=== PATIENT | male | born 1995 | race American Indian/Alaskan Native ===

== ENCOUNTER 2019-04-02 11:04 | Emergency (ER) | payer OTHER ==
[2019-04-02 11:10] VITALS: BP 125/63
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
--- NOTE | 2019-04-02 11:40 | XRay Report ---
LUMBOSACRAL SPINE, 3 VIEWS INDICATION: low back pain. COMPARISON: None. IMPRESSION: There is mild levocurvature to the lumbar spine which could be positional in nature. No significant discogenic DJD or facet arthropathy. The sacrum and SI joints are within normal limits. No acute osseous or soft tissue abnormality. Signer Name: Royal Brown Jr, MD Signed: 04/02/2019 11:36 AM Workstation Name: [id number]
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
[2019-04-02] MEDS ORDERED: IBUPROFEN PO ONE (12:19)
== END 2019-04-02 13:29 | disposition home or self-care (01) ==
LOC: ED 11:04
DX: S16.1XXA Strain of muscle, fascia and tendon at neck level, initial encounter (principal); F17.200 Nicotine dependence, unspecified, uncomplicated; Z79.899 Other long term (current) drug therapy; V89.2XXA Person injured in unspecified motor-vehicle accident, traffic, initial encounter; Y93.89 Activity, other specified; Y92.488 Other paved roadways as the place of occurrence of the external cause; Y99.8 Other external cause status
CPT/HCPCS: 72100; 99283

== ENCOUNTER 2019-07-01 09:47 | Emergency (ER) | payer SELFPAY ==
--- NOTE | 2019-07-01 12:02 | XRay Report ---
CHEST PA AND LATERAL VIEWS INDICATION: cough. COMPARISON: None. FINDINGS: Support devices: None. Heart: Within normal limits. Lungs/Pleura: No acute pulmonary or pleural findings. IMPRESSION: 1. No significant abnormality. Signer Name: Luis Israel MD Signed: 07/01/2019 11:57 AM Workstation Name: [id number]
[2019-07-01 12:03] VITALS: BP 119/93
[2019-07-01 12:03] LABS: Basophils % (Auto) 0.4 % (0.0-1.8); Eosinophils # (Auto) 0.1 K/mm3 (0.0-0.4); Eosinophils % (Auto) 0.9 % (0.0-4.3); Hematocrit 44.9 % (35.5-45.6); Hemoglobin 15.3 gm/dl (11.8-15.2); Lymphocytes # (Auto) 1.6 K/mm3 (1.2-5.4); Lymphocytes % (Auto) 17.4 % (13.4-35.0); Mean Corpuscular HGB Conc 34 % (32-34); Mean Corpuscular Volume 97 fl (84-94); Monocytes # (Auto) 0.9 K/mm3 (0.0-0.8); Monocytes % (Auto) 9.4 % (0.0-7.3); Platelet Count 211 K/mm3 (140-440); Red Blood Count 4.62 M/mm3 (3.65-5.03); Red Cell Distribution Width 13.7 % (13.2-15.2)
[2019-07-01 12:26] LABS: Alanine Aminotransferase 18 units/L (7-56); Albumin 4.2 g/dL (3.9-5); BUN/Creatinine Ratio 11; Blood Urea Nitrogen 12 mg/dL (9-20); Calcium 9.5 mg/dL (8.4-10.2); Hemolysis Index 7
[2019-07-01] MEDS ORDERED: IBUPROFEN 800 MG TAB PO ONE (12:36)
[2019-07-01] MEDS ORDERED: ALBUTEROL 2.5 MG/3 ML NEBU IH ONE (12:36)
[2019-07-01] MEDS ORDERED: predniSONE 20 MG TAB PO ONE (12:36)
[2019-07-01] MEDS ORDERED: levoFLOXacin 500 MG TAB PO ONE (12:37)
--- NOTE | 2019-07-01 12:37 | Emergency Department Report ---
- General Chief Complaint: Upper Respiratory Infection Stated Complaint: COUGHING BLOOD Time Seen by Provider: 07/01/19 12:36 Source: patient Mode of arrival: Ambulatory Limitations: No Limitations - History of Present Illness Initial Comments: 23 yo AA male comes to er with cough and dark secretions. no fever or chills. otherwise healthy. no myalgia. ambulatory and non toxic on exam. Complaint: cough -: Gradual, days(s) Severity: moderate Improves With: nothing Worsens With: nothing Associated Symptoms: denies other symptoms, cough Treatments Prior to Arrival: none - Related Data Previous Rx's Medication Instructions Recorded Last Taken Type Albuterol INH(or & Nicu Only) 2 puff IH QID PRN #1 inhalation 07/01/19 Unknown Rx [ProAir HFA Inhaler] Azithromycin [Zithromax Z-PARK] 250 mg PO DAILY #6 tablet 07/01/19 Unknown Rx Benzonatate [Tessalon Perles] 100 mg PO Q12H PRN #20 capsule 07/01/19 Unknown Rx Cetirizine HCl [ZyrTEC] 10 mg PO DAILY #30 capsule 07/01/19 Unknown Rx Fluticasone [Flonase] 1 spray NS QDAY #1 bottle 07/01/19 Unknown Rx predniSONE [Deltasone] 20 mg PO DAILY #5 tablet 07/01/19 Unknown Rx Allergies Allergy/AdvReac Type Severity Reaction Status Date / Time No Known Allergies Allergy Unverified 04/02/19 11:06 ED Review of Systems ROS: Stated complaint: COUGHING BLOOD Other details as noted in HPI Comment: All other systems reviewed and negative ED Past Medical Hx - Past Medical History Previous Medical History?: No - Surgical History Past Surgical History?: No - Family History Family history: no significant - Social History Smoking Status: Current Every Day Smoker Substance Use Type: None - Medications Home Medications: Home Medications Medication Instructions Recorded Confirmed Last Taken Type Albuterol INH(or & Nicu Only) 2 puff IH QID PRN #1 inhalation 07/01/19 Unknown Rx [ProAir HFA Inhaler] Azithromycin [Zithromax Z-PARK] 250 mg PO DAILY #6 tablet 07/01/19 Unknown Rx Benzonatate [Tessalon Perles] 100 mg PO Q12H PRN #20 capsule 07/01/19 Unknown Rx Cetirizine HCl [ZyrTEC] 10 mg PO DAILY #30 capsule 07/01/19 Unknown Rx Fluticasone [Flonase] 1 spray NS QDAY #1 bottle 07/01/19 Unknown Rx predniSONE [Deltasone] 20 mg PO DAILY #5 tablet 07/01/19 Unknown Rx ED Physical Exam - General Limitations: No Limitations General appearance: alert, in no apparent distress - Head Head exam: Present: atraumatic, normocephalic - Eye Eye exam: Present: normal appearance - ENT ENT exam: Present: mucous membranes moist - Neck Neck exam: Present: normal inspection - Respiratory Respiratory exam: Present: normal lung sounds bilaterally, wheezes. Absent: respiratory distress - Cardiovascular Cardiovascular Exam: Present: regular rate, normal rhythm. Absent: systolic murmur, diastolic murmur, rubs, gallop - GI/Abdominal GI/Abdominal exam: Present: soft, normal bowel sounds - Rectal Rectal exam: Present: deferred - Extremities Exam Extremities exam: Present: normal inspection - Back Exam Back exam: Present: normal inspection - Neurological Exam Neurological exam: Present: alert, oriented X3 - Psychiatric Psychiatric exam: Present: normal affect, normal mood - Skin Skin exam: Present: warm, dry, intact, normal color. Absent: rash ED Course Vital Signs 07/01/19 07/01/19 10:14 12:32 Temperature 98.6 F Pulse Rate 65 Respiratory 18 17 Rate Blood Pressure 119/93 [Left] O2 Sat by Pulse 100 Oximetry ED Medical Decision Making - Lab Data Result diagrams: 07/01/19 11:48 07/01/19 11:48 - Radiology Data Radiology results: report reviewed, image reviewed - Medical Decision Making Lab Results 07/01/19 07/01/19 Range/Units 11:48 11:48 WBC 9.4 (4.5-11.0) K/mm3 RBC 4.62 (3.65-5.03) M/mm3 Hgb 15.3 H (11.8-15.2) gm/dl Hct 44.9 (35.5-45.6) % MCV 97 H (84-94) fl MCH 33 H (28-32) pg MCHC 34 (32-34) % RDW 13.7 (13.2-15.2) % Plt Count 211 (140-440) K/mm3 Lymph % (Auto) 17.4 (13.4-35.0) % Sullivan % (Auto) 9.4 H (0.0-7.3) % Eos % (Auto) 0.9 (0.0-4.3) % Baso % (Auto) 0.4 (0.0-1.8) % Lymph # 1.6 (1.2-5.4) K/mm3 Sullivan # 0.9 H (0.0-0.8) K/mm3 Eos # 0.1 (0.0-0.4) K/mm3 Baso # 0.0 (0.0-0.1) K/mm3 Seg Neutrophils % 71.9 H (40.0-70.0) % Seg Neutrophils # 6.8 (1.8-7.7) K/mm3 Sodium 141 (137-145) mmol/L Potassium 4.0 (3.6-5.0) mmol/L Chloride 102.8 (98-107) mmol/L Carbon Dioxide 25 (22-30) mmol/L Anion Gap 17 mmol/L BUN 12 (9-20) mg/dL Creatinine 1.1 (0.8-1.5) mg/dL Estimated GFR > 60 ml/min BUN/Creatinine Ratio 11 % Glucose 87 (75-100) mg/dL Calcium 9.5 (8.4-10.2) mg/dL Total Bilirubin 0.60 (0.1-1.2) mg/dL AST 26 (5-40) units/L ALT 18 (7-56) units/L Alkaline Phosphatase 93 (35-129) units/L Total Protein 7.4 (6.3-8.2) g/dL Albumin 4.2 (3.9-5) g/dL Albumin/Globulin Ratio 1.3 % Vital Signs 07/01/19 07/01/19 10:14 12:32 Temperature 98.6 F Pulse Rate 65 Respiratory 18 17 Rate Blood Pressure 119/93 [Left] O2 Sat by Pulse 100 Oximetry xray noted labs noted medicated in er vss nad no cp no sob otherwise healthy dc home with dc plan of care and pcp followup - Differential Diagnosis uri ro pna Critical care attestation.: If time is entered above; I have spent that time in minutes in the direct care of this critically ill patient, excluding procedure time. ED Disposition Clinical Impression: URTI (acute upper respiratory infection), Bronchitis Disposition: DC-01 TO HOME OR SELFCARE Is pt being admited?: No Does the pt Need Aspirin: No Condition: Stable Instructions: Acute Bronchitis (ED), Chronic Bronchitis (ED) Additional Instructions: hydrate well with water meds as ordered today diet and activity as tolerated motrin or tylenol for pain or fever follow up with pcp in 48 h for recheck referral below Prescriptions: predniSONE [Deltasone] 20 mg PO DAILY #5 tablet Fluticasone [Flonase] 1 spray NS QDAY #1 bottle Albuterol INH(or & Nicu Only) [ProAir HFA Inhaler] 2 puff IH QID PRN #1 inhalation PRN Reason: Shortness Of Breath Benzonatate [Tessalon Perles] 100 mg PO Q12H PRN #20 capsule PRN Reason: Cough Azithromycin [Zithromax Z-PARK] 250 mg PO DAILY #6 tablet Cetirizine HCl [ZyrTEC] 10 mg PO DAILY #30 capsule Referrals: GIANCARLO VILLALOBOS MD [Staff Physician] - 3-5 Days Time of Disposition: 12:43
== END 2019-07-01 13:29 | disposition home or self-care (01) ==
LOC: ED 09:47
DX: J06.9 Acute upper respiratory infection, unspecified (principal); J40 Bronchitis, not specified as acute or chronic; F17.200 Nicotine dependence, unspecified, uncomplicated; Z79.899 Other long term (current) drug therapy
CPT/HCPCS: 36415; 71046; 80053; 85025; 94640; 99284; J7512; 94644

== ENCOUNTER 2020-02-16 11:29 | Emergency (ER) | payer OTHER ==
[2020-02-16 11:55] VITALS: BP 108/53
[2020-02-16] MEDS ORDERED: BALANCED SALT IRRIG 1 DROPS, TETRACAINE 0.5% 1 DROPS, FLUORESCEIN 1 MG TP ONE (13:19)
--- NOTE | 2020-02-16 13:21 | Event Note ---
ED Screening Note Date of service: 02/16/20 Time: 13:19 ED Screening Note: 24-year-old male presents with left eye pain and swelling to the eye feeling like there is a foreign object in the that started yesterday. Patient is a contact lens user This initial assessment/diagnostic orders/clinical plan/treatment(s) is/are subject to change based on patients health status, clinical progression and re- assessment by fellow clinical providers in the ED. Further treatment and workup at subsequent clinical providers discretion. Patient/guardian urged not to elope from the ED as their condition may be serious if not clinically assessed and managed. Initial orders include: Eye kit, irrigation Left eye tenderness to palpation
--- NOTE | 2020-02-16 15:07 | Emergency Department Report ---
ED Eye Problem HPI - General Chief complaint: Eye Problems Stated complaint: HEADACHE/EYE PAIN Time Seen by Provider: 02/16/20 14:55 Source: patient Mode of arrival: Ambulatory Limitations: No Limitations - History of Present Illness Initial comments: Patient is 24 years old male with no significant past medical history. Patient presented with left eye redness and pain since yesterday. Stated this is associated with watery discharge. Patient denied any fever or headache. Patient stated that he is wearing contact lens. Patient denied any eye injury. MD chief complaint: eye pain, eye redness -: Last night Onset Description: gradual Location: left eye If Injury: none Eye Symptoms: burning, redness, pain Severity: moderate Severity scale (0 -10): 4 If Pain, Quality: throbbing Context: recent uri Associated Symptoms: none Treatments Prior to Arrival: none - Related Data Patient Tetanus UTD: Yes Previous Rx's Medication Instructions Recorded Last Taken Type Albuterol Mdi (or & Nicu Only) 2 puff IH QID PRN #1 inhalation 07/01/19 Unknown Rx [ProAir HFA Inhaler] Azithromycin [Zithromax Z-PARK] 250 mg PO DAILY #6 tablet 07/01/19 Unknown Rx Benzonatate [Tessalon Perles] 100 mg PO Q12H PRN #20 capsule 07/01/19 Unknown Rx Cetirizine HCl [ZyrTEC] 10 mg PO DAILY #30 capsule 07/01/19 Unknown Rx Fluticasone [Flonase] 1 spray NS QDAY #1 bottle 07/01/19 Unknown Rx predniSONE [Deltasone] 20 mg PO DAILY #5 tablet 07/01/19 Unknown Rx Ondansetron [Zofran Odt] 4 mg PO Q8HR PRN #14 tab.rapdis 02/16/20 Unknown Rx Polymyxin B Sulf/Trimethoprim 2 drop OP TID 7 Days #1 bottle 02/16/20 Unknown Rx [Polytrim Eye Drops] traMADoL [Ultram 50 MG tab] 50 mg PO Q4HR PRN #14 tablet 02/16/20 Unknown Rx Allergies Allergy/AdvReac Type Severity Reaction Status Date / Time No Known Allergies Allergy Verified 02/16/20 11:52 ED Review of Systems ROS: Stated complaint: HEADACHE/EYE PAIN Other details as noted in HPI Comment: All other systems reviewed and negative Constitutional: denies: chills, fever Respiratory: denies: cough, shortness of breath, SOB with exertion, SOB at rest, wheezing Cardiovascular: denies: chest pain, palpitations, dyspnea on exertion Gastrointestinal: denies: abdominal pain, nausea, vomiting, diarrhea, constipation, hematemesis, hematochezia Musculoskeletal: denies: back pain Neurological: denies: headache, weakness, numbness, paresthesias, confusion, abnormal gait ED Past Medical Hx - Past Medical History Previous Medical History?: No Hx Tuberculosis: No - Surgical History Past Surgical History?: No - Social History Smoking Status: Never Smoker Substance Use Type: None - Medications Home Medications: Home Medications Medication Instructions Recorded Confirmed Last Taken Type Albuterol Mdi (or & Nicu Only) 2 puff IH QID PRN #1 inhalation 07/01/19 Unknown Rx [ProAir HFA Inhaler] Azithromycin [Zithromax Z-PARK] 250 mg PO DAILY #6 tablet 07/01/19 Unknown Rx Benzonatate [Tessalon Perles] 100 mg PO Q12H PRN #20 capsule 07/01/19 Unknown Rx Cetirizine HCl [ZyrTEC] 10 mg PO DAILY #30 capsule 07/01/19 Unknown Rx Fluticasone [Flonase] 1 spray NS QDAY #1 bottle 07/01/19 Unknown Rx predniSONE [Deltasone] 20 mg PO DAILY #5 tablet 07/01/19 Unknown Rx Ondansetron [Zofran Odt] 4 mg PO Q8HR PRN #14 tab.rapdis 02/16/20 Unknown Rx Polymyxin B Sulf/Trimethoprim 2 drop OP TID 7 Days #1 bottle 02/16/20 Unknown Rx [Polytrim Eye Drops] traMADoL [Ultram 50 MG tab] 50 mg PO Q4HR PRN #14 tablet 02/16/20 Unknown Rx ED Physical Exam - General Limitations: No Limitations General appearance: alert, in no apparent distress - Head Head exam: Present: atraumatic, normocephalic, normal inspection - Eye Eye exam: Present: PERRL, EOMI, conjunctival injection. Absent: nystagmus, periorbital swelling, periorbital tenderness Pupils: Present: normal accommodation - ENT ENT exam: Present: normal exam, normal orophraynx, mucous membranes moist - Neck Neck exam: Present: normal inspection, full ROM. Absent: tenderness, meningismu s - Respiratory Respiratory exam: Present: normal lung sounds bilaterally - Cardiovascular Cardiovascular Exam: Present: regular rate, normal rhythm, normal heart sounds - GI/Abdominal GI/Abdominal exam: Present: soft, normal bowel sounds. Absent: distended, tenderness, guarding, rebound, rigid, organomegaly, mass, bruit, pulsatile mass, hernia - Extremities Exam Extremities exam: Present: normal inspection, full ROM, normal capillary refill. Absent: tenderness - Neurological Exam Neurological exam: Present: alert, oriented X3, CN II-XII intact, normal gait, reflexes normal. Absent: motor sensory deficit - Psychiatric Psychiatric exam: Present: normal mood - Skin Skin exam: Present: warm, intact, normal color ED Course Vital Signs 02/16/20 11:54 Temperature 97.8 F Pulse Rate 65 Respiratory 16 Rate Blood Pressure 108/53 O2 Sat by Pulse 100 Oximetry - Eye Procedure Alcaine Drops Administered: Yes Cyclogel 2 Drops Administered: left eye Progress: Left eye irrigated with 5 mm of normal saline and tetracaine applied. I examined with ultraviolet and the test showed no evidence of corneal abrasion or injury. ED Medical Decision Making - Medical Decision Making Patient is 24 years old male with no significant past medical history. Patient presented with left eye redness and pain since yesterday. Stated this is associated with watery discharge. Patient denied any fever or headache. Patient stated that he is wearing contact lens. Patient denied any eye injury Eye exam performed using Parrish lamp showed no corneal uptake and no evidence of corneal injury. Patient given prescription for Polytrim and advised to follow-up with concrete mixing plant laborer in the next 2 to 3 days and to return to the ER if he develop any new symptoms. Patient also advised not to wear his contact lenses until he see his concrete mixing plant laborer. Critical care attestation.: If time is entered above; I have spent that time in minutes in the direct care of this critically ill patient, excluding procedure time. ED Disposition Clinical Impression: Acute conjunctivitis of left eye Disposition: DC-01 TO HOME OR SELFCARE Is pt being admited?: No Condition: Stable Instructions: Conjunctivitis (ED) Prescriptions: Polymyxin B Sulf/Trimethoprim [Polytrim Eye Drops] 2 drop OP TID 7 Days #1 bottle traMADoL [Ultram 50 MG tab] 50 mg PO Q4HR PRN #14 tablet PRN Reason: Pain Ondansetron [Zofran Odt] 4 mg PO Q8HR PRN #14 tab.rapdis PRN Reason: Nausea And Vomiting Referrals: PHONG REAVES MD [Staff Physician] - 3-5 Days Forms: Work/School Release Form(ED)
[2020-02-16] MEDS ORDERED: FLUORESCEIN 1 MG STRIP OP ONE (15:11)
[2020-02-16] MEDS ORDERED: TETRACAINE 0.5% OPHTH SOLN 4ML ONE (15:11)
[2020-02-16] MEDS ORDERED: BALANCED SALT IRRIG (BSS) OPHTH SOLN 15 ML ONE (15:11)
[2020-02-16] MEDS ORDERED: TETRACAINE 0.5% OPHTH SOLN 4ML OU ONE (15:15)
== END 2020-02-16 16:31 | disposition home or self-care (01) ==
LOC: ED 11:29
DX: H10.32 Unspecified acute conjunctivitis, left eye (principal); Z79.2 Long term (current) use of antibiotics; Z79.899 Other long term (current) drug therapy

== ENCOUNTER 2020-06-20 08:52 | Emergency (ER) | payer SELFPAY ==
[2020-06-20 09:00] VITALS: BP 131/72
--- NOTE | 2020-06-20 09:02 | Emergency Department Report ---
ED General Adult HPI - General Chief complaint: Extremity Injury, Lower Stated complaint: RT ANKLE LUMP/INJURY/PAIN Time Seen by Provider: 06/20/20 09:02 Source: patient Mode of arrival: Wheelchair Limitations: No Limitations - History of Present Illness Initial comments: 24-year-old -[place] male patient presents with complaints of right ankle pain after a twist injury yesterday. He rates his pain as 8/10 in severity and states he has not tried any OTC medication for his pain. His pain worsens with ambulation and to touch per patient. He denies any numbness/tingling/weakness in his foot or color changes. - Related Data Previous Rx's Medication Instructions Recorded Last Taken Type Albuterol Mdi (or & Nicu Only) 2 puff IH QID PRN #1 inhalation 07/01/19 Unknown Rx [ProAir HFA Inhaler] Azithromycin [Zithromax Z-PARK] 250 mg PO DAILY #6 tablet 07/01/19 Unknown Rx Benzonatate [Tessalon Perles] 100 mg PO Q12H PRN #20 capsule 07/01/19 Unknown Rx Cetirizine HCl [ZyrTEC] 10 mg PO DAILY #30 capsule 07/01/19 Unknown Rx Fluticasone [Flonase] 1 spray NS QDAY #1 bottle 07/01/19 Unknown Rx predniSONE [Deltasone] 20 mg PO DAILY #5 tablet 07/01/19 Unknown Rx Ondansetron [Zofran Odt] 4 mg PO Q8HR PRN #14 tab.rapdis 02/16/20 Unknown Rx Polymyxin B Sulf/Trimethoprim 2 drop OP TID 7 Days #1 bottle 02/16/20 Unknown Rx [Polytrim Eye Drops] traMADoL [Ultram 50 MG tab] 50 mg PO Q4HR PRN #14 tablet 02/16/20 Unknown Rx Ibuprofen [Motrin 800 MG tab] 800 mg PO Q8HR PRN #21 tablet 06/20/20 Unknown Rx Allergies Allergy/AdvReac Type Severity Reaction Status Date / Time No Known Allergies Allergy Verified 02/16/20 11:52 ED Review of Systems ROS: Stated complaint: RT ANKLE LUMP/INJURY/PAIN Other details as noted in HPI Constitutional: denies: fever Musculoskeletal: joint swelling, arthralgia Skin: denies: change in color Neurological: abnormal gait (Secondary to pain per patient). denies: numbness, paresthesias ED Past Medical Hx - Past Medical History Previous Medical History?: No Hx Tuberculosis: No - Surgical History Past Surgical History?: No - Social History Smoking Status: Never Smoker Substance Use Type: None - Medications Home Medications: Home Medications Medication Instructions Recorded Confirmed Last Taken Type Albuterol Mdi (or & Nicu Only) 2 puff IH QID PRN #1 inhalation 07/01/19 Unknown Rx [ProAir HFA Inhaler] Azithromycin [Zithromax Z-PARK] 250 mg PO DAILY #6 tablet 07/01/19 Unknown Rx Benzonatate [Tessalon Perles] 100 mg PO Q12H PRN #20 capsule 07/01/19 Unknown Rx Cetirizine HCl [ZyrTEC] 10 mg PO DAILY #30 capsule 07/01/19 Unknown Rx Fluticasone [Flonase] 1 spray NS QDAY #1 bottle 07/01/19 Unknown Rx predniSONE [Deltasone] 20 mg PO DAILY #5 tablet 07/01/19 Unknown Rx Ondansetron [Zofran Odt] 4 mg PO Q8HR PRN #14 tab.rapdis 02/16/20 Unknown Rx Polymyxin B Sulf/Trimethoprim 2 drop OP TID 7 Days #1 bottle 02/16/20 Unknown Rx [Polytrim Eye Drops] traMADoL [Ultram 50 MG tab] 50 mg PO Q4HR PRN #14 tablet 02/16/20 Unknown Rx Ibuprofen [Motrin 800 MG tab] 800 mg PO Q8HR PRN #21 tablet 06/20/20 Unknown Rx ED Physical Exam - General Limitations: No Limitations General appearance: alert, in no apparent distress - Head Head exam: Present: atraumatic, normocephalic - Respiratory Respiratory exam: Absent: respiratory distress - Cardiovascular Cardiovascular Exam: Present: regular rate - Expanded Lower Extremity Exam Right Ankle exam: Present: full ROM, tenderness (Lateral ), swelling (Mild lateral ankle swelling noted without bruising). Absent: abrasion, ecchymosis Foot/Toe exam: Present: full ROM Neuro vascular tendon exam: Present: no vascular compromise. Absent: sensory deficit, extremity cold to touch Gait: Positive: antalgic - Back Exam Back exam: Present: full ROM - Neurological Exam Neurological exam: Present: alert, oriented X3 - Psychiatric Psychiatric exam: Present: normal affect, normal mood - Skin Skin exam: Present: warm, dry, intact, normal color. Absent: rash ED Course Vital Signs 06/20/20 06/20/20 08:57 08:59 Temperature 97.9 F Pulse Rate 82 Respiratory 16 Rate Blood Pressure 131/72 [Right] O2 Sat by Pulse 98 Oximetry ED Medical Decision Making - Radiology Data Radiology results: report reviewed RIGHT ANKLE 4 VIEW(S) INDICATION / CLINICAL INFORMATION: lateral ankle pain, twist injury COMPARISON: None available. FINDINGS: BONES / JOINT(S): No acute fracture or subluxation. No significant arthritis. SOFT TISSUES: Mild ankle edema, slightly more prominent at the lateral aspect. Findings can be seen in setting of lateral ankle sprain. Consider further evaluation as warranted. ADDITIONAL FINDINGS: None. - Medical Decision Making 24-year-old -[place] male patient presents with complaints of right ankle pain after a twist injury yesterday. He rates his pain as 8/10 in severity and states he has not tried any OTC medication for his pain. His pain worsens with ambulation and to touch per patient. He denies any numbness/tingling/weakness in his foot or color changes. X-rays negative for any fracture. Will treat for ankle sprain with crutches, Donovan wrap, and rice method. Ibuprofen given for pain. Recommend follow-up with orthopedics as needed. Discussed signs and symptoms that should prompt immediate return to the emergency department, patient verbalizes understanding. Critical care attestation.: If time is entered above; I have spent that time in minutes in the direct care of this critically ill patient, excluding procedure time. ED Disposition Clinical Impression: Right ankle sprain Qualifiers: Encounter type: initial encounter Involved ligament of ankle: other ligament Qualified Code(s): S93.491A - Sprain of other ligament of right ankle, initial encounter Disposition: -01 TO HOME OR SELFCARE Is pt being admited?: No Condition: Stable Instructions: Ankle Sprain, Elastic Bandage and RICE Therapy Prescriptions: Ibuprofen [Motrin 800 MG tab] 800 mg PO Q8HR PRN #21 tablet PRN Reason: pain Referrals: [facility] [Provider Group] - as needed Forms: Work/School Release Form(ED)
--- NOTE | 2020-06-20 09:30 | XRay Report ---
RIGHT ANKLE 4 VIEW(S) INDICATION / CLINICAL INFORMATION: lateral ankle pain, twist injury COMPARISON: None available. FINDINGS: BONES / JOINT(S): No acute fracture or subluxation. No significant arthritis. SOFT TISSUES: Mild ankle edema, slightly more prominent at the lateral aspect. Findings can be seen i n setting of lateral ankle sprain. Consider further evaluation as warranted. ADDITIONAL FINDINGS: None. Signer Name: Rj Alanis MD Signed: 06/20/2020 9:26 AM Workstation Name: [id number]
[2020-06-20] MEDS ORDERED: IBUPROFEN 800 MG TAB PO ONE (09:45)
== END 2020-06-20 10:22 | disposition home or self-care (01) ==
LOC: ED 08:52
DX: S93.491A Sprain of other ligament of right ankle, initial encounter (principal); Z79.899 Other long term (current) drug therapy; X50.1XXA Overexertion from prolonged static or awkward postures, initial encounter; Y93.89 Activity, other specified; Y92.89 Other specified places as the place of occurrence of the external cause; Y99.8 Other external cause status